=== PATIENT | male | born 1950 | race African-American/Black ===

== ENCOUNTER 2022-05-24 09:00 | Day surgery (SDC) | payer OTHER ==
[~2022-05-24] VITALS: Ht 172.7 cm; Wt 95.3 kg
[2022-05-24] MEDS ORDERED: fentaNYL citrate 0.05 MG/ML VIAL ONE (10:11)
[2022-05-24] MEDS ORDERED: LIDOCAINE 2% 100 MG/5 ML UJET TP ONE (10:12)
[2022-05-24] MEDS ORDERED: MIDAZOLAM 5 MG/5 ML VIAL ONE (10:21)
[2022-05-24] MEDS ORDERED: fentaNYL citrate 0.05 MG/ML VIAL IVP ONE (13:55)
== END 2022-05-24 11:56 | disposition home or self-care (01) ==
LOC: MMU 09:00 → MDS 09:00 → MMU 09:08 → MDS 11:56
PROVIDERS: ATTEND Internal Medicine Gastroenterology
DX: Z12.11 Encounter for screening for malignant neoplasm of colon (principal); K63.5 Polyp of colon; K57.30 Diverticulosis of large intestine without perforation or abscess without bleeding; Z20.822 Contact with and (suspected) exposure to COVID-19
CPT/HCPCS: 45385; 87426; J3010; J2250